=== PATIENT | female | born 1995 | race Caucasian/White ===

== ENCOUNTER 2020-12-31 00:19 | Inpatient (IN) | payer BC, SELFPAY ==
[~2020-12-31] VITALS: Ht 165.1 cm; Wt 74.8 kg
[2020-12-31 00:19] VITALS: BP 111/67
--- NOTE | 2020-12-31 00:19 | NUR ---
PT TAKEN TO BED #3
--- NOTE | 2020-12-31 00:25 | NUR ---
[place] [facility] in [facility] - 12/31/20 at 0333 by [email or web address] CALLED PATIENT BACK, NO RESPONSE.
--- NOTE | 2020-12-31 00:30 | NUR ---
TO BED 3 WITH C/O ABDOOMINAL PAIN, "IT'S MY RIGHT OVARY", X 3 DAYS. RESPIRATIONS ARE REGULAR AND UNLABORED. SKIN IS WARM AND DRY. FACIAL GRIMACING IS NOTED.
--- NOTE | 2020-12-31 00:36 | NUR ---
[place] [facility] in [facility] - 12/31/20 at 0334 by [email or web address] CALLED PATIENT BACK, NO RESPONSE.
--- NOTE | 2020-12-31 00:40 | NUR ---
UA OBTAINED AND DIPPED
[2020-12-31] MEDS ORDERED: ONDANSETRON 4 MG/2 ML VIAL IVP ONE (02:10)
[2020-12-31] MEDS ORDERED: MORPHINE SULFATE 2 MG/ML SYR IVP ONE ×2 (02:10→04:10)
[2020-12-31] MEDS ORDERED: NACL 0.9% 1,000 ML IV ONE ×3 (02:10→04:10)
--- NOTE | 2020-12-31 02:20 | NUR ---
CONSENT FOR CT W/ CONTRAST OBTAINED.
[2020-12-31 02:39] LABS: BASOPHILS % (AUTO) 0.3 % (0.0-2.0); EOSINOPHILS # (AUTO) 0.1 K/uL (0-0.4); EOSINOPHILS % (AUTO) 0.5 % (0.0-4.0); HEMATOCRIT 37.5 % (36-48); HEMOGLOBIN 12.5 g/dL (12.0-16.0); LYMPHOCYTES # (AUTO) 1.2 K/uL (2.5-16.5); LYMPHOCYTES % (AUTO) 9.9 % (20.5-51.1); MEAN CORPUSCULAR HEMOGLOBIN 29 pg (27-31); MEAN CORPUSCULAR HGB CONC 33 g/dL (33-37); MEAN CORPUSCULAR VOLUME 85.9 fL (80-94); MONOCYTES # (AUTO) 0.7 K/uL (0.8-1.0); MONOCYTES % (AUTO) 5.7 % (1.7-9.3); NEUTROPHILS # (AUTO) 10.2 K/uL (1.8-7.7); NEUTROPHILS % (AUTO) 83.6 % (42.2-75.2); PLATELET COUNT (AUTO) 215 K/uL (140-450); RED BLOOD CELL COUNT(AUTO) 4.36 MIL/uL (4.20-5.40); RED CELL DISTRIBUTION WIDTH 13.3 % (11.6-13.7); WHITE BLOOD COUNT (AUTO) 12.2 K/uL (4.8-10.8)
[2020-12-31 03:06] LABS: ALBUMIN 3.8 g/dL (3.4-5.0); ANION GAP 11.5 (8-16); CARBON DIOXIDE 24.4 mmol/L (21-32); CREATININE 0.7 mg/dL (0.6-1.3); HCG,QUANTITATIVE < 1 mIU/mL (0-6); POTASSIUM 3.9 mmol/L (3.5-5.1); TOTAL BILIRUBIN 0.3 mg/dL (0.0-1.0)
--- NOTE | 2020-12-31 03:32 | NUR ---
TO CT VIA W/C
--- NOTE | 2020-12-31 03:41 | NUR ---
RETURNED FROM CT
[2020-12-31] MEDS ORDERED: PIPERACILLIN/TAZOBACTAM 3.375 GM in DEXTROSE 5% 50 ML IV ONE (04:10)
[2020-12-31] MEDS ORDERED: PIPERACILLIN/TAZOBACTAM 3.375 GM VIAL IV ONE (04:40)
--- NOTE | 2020-12-31 05:05 | NUR ---
[facility] [phone], PT TO BE TRANSFERED TO [facility]
[2020-12-31] MEDS ORDERED: diphenhydrAMINE 50 MG/ML VIAL ONE (05:27)
[2020-12-31] MEDS ORDERED: LEVOFLOXACIN 750 MG/D5W PREMIX 150 ML IV ONE (05:30)
[2020-12-31] MEDS ORDERED: metroNIDAZOLE 500 MG/NS PREMIX 100 ML IV ONE (05:30)
--- NOTE | 2020-12-31 06:30 | NUR ---
up and ambulated to br with steady gait
--- NOTE | 2020-12-31 07:20 | NUR ---
REPORT WAS GIVEN FROM SEBASTIAN KEATING.
--- NOTE | 2020-12-31 07:50 | NUR ---
PT AMBULATED TO BATHROOM, COLEMAN WAS SWABBED AND SENT TO LAB.
[2020-12-31] MEDS ORDERED: diphenhydrAMINE 50 MG/ML VIAL IVP SCH (08:00)
--- NOTE | 2020-12-31 08:20 | NUR ---
PT SPOUSE CALLED. UPDATE WAS GIVEN, WILL CALL IF ANYTHING CHANGES.
[2020-12-31] MEDS ORDERED: POTASSIUM CHLORIDE 10 MEQ TABER PO PRN (08:25)
[2020-12-31] MEDS ORDERED: LORazepam 1 MG TAB PO PRN (08:25)
[2020-12-31] MEDS ORDERED: ONDANSETRON 4 MG/2 ML VIAL IVP PRN ×2 (08:25→13:15)
[2020-12-31] MEDS ORDERED: KCL 20 MEQ/WATER INJ PREMIX 200 ML IV PRN (08:25)
[2020-12-31] MEDS ORDERED: MAG SULF 2000 MG/WATER PREMIX 50 ML IV PRN (08:25)
[2020-12-31] MEDS ORDERED: HYDROcodone/APAP 5/325 MG 1 TAB TAB PO PRN ×2 (08:25→13:10)
[2020-12-31] MEDS ORDERED: MAGNESIUM OXIDE 400 MG TAB PO PRN (08:25)
[2020-12-31] MEDS ORDERED: HYDROmorphone 1 MG/ML AMP IVP PRN ×3 (08:25→13:15)
[2020-12-31] MEDS ORDERED: MORPHINE SULFATE 4 MG/ML SYR IVP PRN (08:25)
[2020-12-31] MEDS ORDERED: ZOLPIDEM 5 MG TAB PO PRN (08:25)
--- NOTE | 2020-12-31 08:40 | NUR ---
Patient will be admitted to care of LINH SHUKLA. Admited to [facility]. Will go to room 105B. Belongings list completed. Report to SHELL KEATING.
--- NOTE | 2020-12-31 08:40 | NUR ---
RECEIVED REPORT FROM ER NURSE PATIENT IS AAOX4 ON NPO EXCEPT MEDICATIONS, ROOM AIR, SKIN INTACT IV INTACTON THE RIGHT AC, AMBULATORY, SODIUM CHLORIDE BOLUS GIVEN AT ER, STARTED ON METRONIODAZOLE AT A RATE OF 100 ML. COLEMAN NEGATIVE, MRSA DONE BY ER NURSE.
--- NOTE | 2020-12-31 09:00 | NUR ---
PATIENT ARRIVE AT THE UNIT VIA GURNEY, ASSISTED TO BED AND ORIENTED TO ROOM, TAKE VITAL SIGNS BP 106/60 AL 84 RR 20 TEMP 97.9 OXYGEN SATURATION 100%. SIDE RAILS UP AND SAFETY MEASURES IN PLACE AND CALL LIGHT WITHIN REACH. WILL CONTINUE TO MONITOR.
[2020-12-31] MEDS: DEXT 5% /NACL 0.9% 1,000 ML IV SCH ×2 (09:49→22:19)
[2020-12-31] MEDS: DOCUSATE SODIUM 100 MG GELCAP PO SCH (09:50)
--- NOTE | 2020-12-31 09:50 | NUR ---
MEDICATION DUE GIVEN PT TOLERATED WELL PT COMPLAINS OF HEADACHE 8/ GAVE PAIN MEDICATIONS.
[2020-12-31] MEDS: ACETAMINOPHEN 325 MG TAB PO PRN (10:01)
[2020-12-31 10:45] VITALS: BP 106/60
--- NOTE | 2020-12-31 11:00 | NUR ---
PATIENT FOR LAPAORSCOPIC APPENDECTOMY BY DR MIRAMONTES, DR JAMIE BRINK EXPLAINED TO THE PATIENT AND ANSWERED QUESTION. PT GAVE CONSENT FOR THE SURGERY.
[2020-12-31] MEDS ORDERED: BUPIVACAINE-MPF/EPI 0.25% 10 ML VIAL INJ ONE (11:25)
--- NOTE | 2020-12-31 11:40 | NUR ---
PATIENT OUT IN HER ROOM FOR LAPAROSCOPIC APPENDECTOMY,PT IS STABLE AND AWARE.
[2020-12-31] MEDS ORDERED: NEOSTIGMINE 1:1000 10 MG/10 ML VIAL ONE (12:00)
[2020-12-31] MEDS ORDERED: GLYCOPYRROLATE 0.2 MG/ML VIAL ONE (12:00)
[2020-12-31] MEDS ORDERED: SUCCINYLCHOLINE CHLORIDE 200 MG/10 ML VIAL IVP ONE (12:00)
[2020-12-31] MEDS ORDERED: PROPOFOL 200 MG/20 ML VIAL IV ONE (12:00)
[2020-12-31] MEDS ORDERED: ROCURONIUM 50 MG/5 ML VIAL IV ONE (12:00)
[2020-12-31] MEDS ORDERED: DEXAMETHASONE 4 MG/ML VIAL ONE (12:00)
[2020-12-31] MEDS ORDERED: fentaNYL citrate 0.05 MG/ML VIAL ONE (12:00)
[2020-12-31] MEDS ORDERED: SEVOFLURANE 250 ML BTL INH ONE (12:00)
[2020-12-31] MEDS ORDERED: ONDANSETRON 4 MG/2 ML VIAL ONE (12:00)
[2020-12-31] MEDS ORDERED: METOCLOPRAMIDE 10 MG/2 ML INJ VIAL ONE (12:00)
[2020-12-31] MEDS ORDERED: MEPERIDINE 25 MG/ML SYR IVP PRN (13:15)
[2020-12-31] MEDS ORDERED: LACTATED RINGERS 1,000 ML IV SCH (13:15)
[2020-12-31] MEDS ORDERED: HYDROmorphone PFS 2 MG/ML SYR ONE (13:38)
[2020-12-31] MEDS ORDERED: MEPERIDINE 25 MG/ML SYR ONE (13:55)
--- NOTE | 2020-12-31 14:20 | NUR ---
PATIENT BACK IN HER ROOM ACCOMPANIED BY OR NURSE IRENE S/P LAPAROSCOPIC APPENDECTOMY WITH 3 INCISION ON THE BELLY, LEFT LOWER QUADRANT OF THE ABDOMEN AND LOWER ABDOMEN DERMA BAND. VITAL SIGNS CHECK BP 101/53 SD 91 RR 20 TEMP 98.1 OXYGEN SATURATION 97. PT IS SLEEPING AND NO DISTRESS NOTED. PT WAS GIVEN DEMEROL 25 MG AND FEELS BETTER.WILL CONTINUE TO MONITOR.
[2020-12-31 16:00] VITALS: BP 97/52
--- NOTE | 2020-12-31 17:00 | NUR ---
MADE ROUND, PT IS AWAKE AND DENIES PAIN, ABLE TO AMBULATE TO THE BATHROOM, PT IS STABLE.
--- NOTE | 2020-12-31 19:26 | NUR ---
ENDORSED TO NIGHT NURSE FOR CONTINUITY OF CARE. PT IS STABLE
[2020-12-31 20:00] VITALS: BP 120/65
--- NOTE | 2020-12-31 20:14 | NUR ---
PT DENIES SOB AND STATED UNABLE TO PERFORM IS AT THIS TIME. PT RESPECTFULLY REFUSED IS AT THIS TIME BUT IS @ BEDSIDE. CURRENTLY SPO2 99% AND HR 82 WILL CONTINUE TO MONITOR
[2021-01-01] VITALS: BP 120/65
[2021-01-01 04:00] VITALS: BP 99/61
[2021-01-01] MEDS: ACETAMINOPHEN 325 MG TAB PO PRN ×2 (04:04→14:32)
--- NOTE | 2021-01-01 06:35 | NUR ---
PATIENT HAS BEEN SCREENED AND CATEGORIZED LOW NUTRITION RISK. PATIENT WILL BE SEEN WITHIN 7 DAYS OF ADMISSION. 01/07/21 EILEEN SIERRA MS, RDN
[2021-01-01 07:08] LABS: HEMATOCRIT 33.6 % (36-48); HEMOGLOBIN 11.4 g/dL (12.0-16.0); LYMPHOCYTES # (AUTO) 0.8 K/uL (2.5-16.5); MEAN CORPUSCULAR HEMOGLOBIN 29 pg (27-31); MEAN CORPUSCULAR HGB CONC 34 g/dL (33-37); MEAN CORPUSCULAR VOLUME 86.4 fL (80-94); MONOCYTES # (AUTO) 0.5 K/uL (0.8-1.0); MONOCYTES % (AUTO) 3.8 % (1.7-9.3); NEUTROPHILS # (AUTO) 10.9 K/uL (1.8-7.7); PLATELET COUNT (AUTO) 186 K/uL (140-450); RED BLOOD CELL COUNT(AUTO) 3.89 MIL/uL (4.20-5.40); RED CELL DISTRIBUTION WIDTH 13.8 % (11.6-13.7); WHITE BLOOD COUNT (AUTO) 12.1 K/uL (4.8-10.8)
--- NOTE | 2021-01-01 07:18 | NUR ---
RECEIVED REPORT FROM SERVER ADMINISTRATOR RN FOR CONTINUITY OF CARE. PATIENT RESTING IN BED IN SUPINE POSITION. AAOX4, ABLE TO MAKE NEEDS KNOWN. DENIES PAIN AT THIS TIME. IV TO LEFT AC 18G INFUSING D5 NS@ 80ML/HR. S/P LAPA APPENDECTOMY 12/31, ABD WITH 3 INCISION SITE WITH DERMABOND CHELY. SAFETY MEASURES IN PLACE, CALL LIGHT WITHIN REACH. WILL CONTINUE TO MONITOR.
[2021-01-01 07:30] LABS: ALBUMIN 3.3 g/dL (3.4-5.0); ANION GAP 14.5 (8-16); CARBON DIOXIDE 23.3 mmol/L (21-32); CREATININE 0.6 mg/dL (0.6-1.3); POTASSIUM 3.8 mmol/L (3.5-5.1); TOTAL BILIRUBIN 0.4 mg/dL (0.0-1.0)
[2021-01-01 07:59] LABS: LYMPHOCYTES % (AUTO) 6.3 % (20.5-51.1); NEUTROPHILS % (AUTO) 89.9 % (42.2-75.2)
[2021-01-01 08:00] VITALS: BP 95/59
[2021-01-01] MEDS ORDERED: LEVOFLOXACIN 750 MG/D5W PREMIX 150 ML IV SCH (09:00)
[2021-01-01] MEDS: DEXT 5% /NACL 0.9% 1,000 ML IV SCH (09:25)
[2021-01-01] MEDS: DOCUSATE SODIUM 100 MG GELCAP PO SCH (09:32)
--- NOTE | 2021-01-01 09:33 | NUR ---
SCHEDULED MEDICATIONS GIVEN, EDUCATION PROVIDED. PATIENT TOLERATED WELL. DENIES ABDOMEN PAIN AT THIS TIME. 3 INCISION SITES DRY AND CLEAN. NO S/S INFECTION NOTED. WILL CONTINUE TO MONITOR.
--- NOTE | 2021-01-01 10:27 | NUR ---
DR. MELTON WAS INFORMED THAT SURGEON DR. MIRAMONTES IS OK TO DISCHARGE THE PATIENT.
--- NOTE | 2021-01-01 11:05 | NUR ---
PATIENT RESTING IN BED IN RIGHT LATERAL POSITION. DENIES PAIN AT THIS TIME. INFORMED PATIENT THAT PRIMARY MD WAS INFORMED REGARDING THE DISCHARGE. DR. MELTON WOULD COME IN ABOUT 3 HOURS. PATIENT VERBALIZED UNDERSTANDING. WILL CONTINUE TO MONITOR.
--- NOTE | 2021-01-01 14:32 | NUR ---
TYLENOL GIVEN FOR HEADACHE.
--- NOTE | 2021-01-01 15:30 | NUR ---
PATIENT RESTING IN BED, DENIES PAIN AT THIS TIME. WILL CONTINUE TO MONITOR.
[2021-01-01 16:00] VITALS: BP 96/59
[2021-01-01] MEDS ORDERED: TRAM50TA1 PO (16:13)
[2021-01-01 16:30] VITALS: BP 95/59
== END 2021-01-01 17:45 | disposition home or self-care (01) | DRG 853 ==
LOC: MED 00:19 → MTU 08:21
PROVIDERS: ADMIT Hospitalist; ATTEND Hospitalist
PROC: 0DTJ4ZZ Resection of Appendix, Percutaneous Endoscopic Approach (ICD-10-PCS; principal; 2020-12-31 14:00)
DX: A41.9 Sepsis, unspecified organism (principal); K35.33 Acute appendicitis with perforation, localized peritonitis, and gangrene, with abscess; Z20.822 Contact with and (suspected) exposure to COVID-19
CPT/HCPCS: 36415; 80053; 83036; 83605; 84702; 85025; 87040; 87081; 96361; 96365; 96366; 96367; 96368; 96375; 99291; J0330; J1100; J1170; J1200; J1644; J1956; J2175; J2270; J2405; J2543; J2704; J2710; J2765; J3010; J3490; J7030; J7042; J7060; J7120; Q9967